=== PATIENT | female | born 1980 | race Caucasian/White ===

== ENCOUNTER 2018-04-03 13:45 | Emergency (ER) | payer OTHER ==
[~2018-04-03] VITALS: Ht 172.7 cm; Wt 81.4 kg
[~2018-04-03 13:45] MED LIST: ADVAIR 100/28 DISKUS IH; ADVAIR IH; ALBUTEROL0.09 MG/A1 IH; AMOXICILLIN 50500 MG PO; ASTHMA MED; BACTRIM DS 8001 TAB PO; CETIRIZINE; CIPRO; CLINDAMYCIN HC300 MG PO; COLACE 100100 MG/CAP PO; CYMBALTA 60MG60 MG PO; DILAUDID 2MG TAB2 MG PO; FLEXERIL10 MG PO; FLEXERIL5 MG PO; FLONASE NASAL S16 GM NS; HYDROMORPHONE HC2 MG PO; LEVAQUIN 5500 MG/TAB PO; LORTAB 5/500 501 TAB; LORTAB 5/500 501 TAB PO; MACROBID100 MG PO; MILK OF MA400 MG/51 PO; MOTRIN 800800 MG/TAB PO; NO HOME MEDICATIONS; NORCO PO; OXYCODONE HCL5 MG PO; PERCOCET 5/321 UDTAB PO; PHENERGAN 25 TA25 MG; PHENERGAN 25 TA25 MG PO; PRENATAL VITAMI1 TA5 PO; PYRIDIUM 100MG100 MG PO; VENTOLIN0.09 MG IH; VENTOLIN0.09 MG/AC IH; ZITHROMAX 250M250 MG PO; ZYRTEC 10MG PO
[2018-04-03 13:59] VITALS: BP 121/79; PULSE 71; TEMP 98
[2018-04-03 14:40] LABS: BASO # 0.1 (0.0-0.2); BASO % 1.1 % (0.0-2.0); EOS # 0.3 (0.0-0.7); EOS % 6.8 % (0-4.0); HEMATOCRIT 37.8 % (37.0-47.0); HEMOGLOBIN 12.3 g/dl (12.5-16.0); LYMPH # 1.7 (1.2-3.4); LYMPH % 36.9 % (20.0-51.0); MEAN CELL VOLUME 88 fl (80.0-100.0); MEAN CORPUSCULAR HEMOGLOBIN 29 pg (27.0-31.0); MEAN CORPUSCULAR HGB CONC 33 g/dl (33.0-37.0); MEAN PLATELET VOLUME 10.7 fl (7.4-10.4); MONO # 0.6 (0.1-0.6); PLATELET COUNT 170 K/mm3 (130-400); RED BLOOD COUNT 4.31 M/mm3 (4.10-5.30); REDCELL DISTRIBUTION WIDTH-CV 12.5 % (11.5-14.5)
[2018-04-03 14:50] LABS: ALBUMIN 4.1 gm/dL (3.5-5.0); BILIRUBIN,TOTAL 0.8 mg/dL (0.0-1.0); CALCIUM 8.7 mg/dL (8.4-10.2); CREATININE, serum 0.71 mg/dL (0.52-1.25); POTASSIUM 3.3 mmol/L (3.4-5.0); TOTAL PROTEIN 7.6 gm/dL (6.4-8.2)
== END 2018-04-03 14:50 | disposition home or self-care (01) ==
LOC: COL.ER 13:45
PROVIDERS: Physician Assistant
DX: M54.6 Pain in thoracic spine (principal)

== ENCOUNTER 2019-01-27 17:09 | Emergency (ER) | payer OTHER ==
[~2019-01-27] VITALS: Ht 175.3 cm; Wt 77.3 kg
[2019-01-27 17:24] VITALS: BP 115/73; TEMP 98.3
[2019-01-27] MEDS ORDERED: ZITHROMAX Z PA250 MG PO (18:27)
[2019-01-27] MEDS ORDERED: PREDNISONE20 MG PO (18:27)
[2019-01-27] MEDS ORDERED: PROAIR HFA0.09 MG/AC IH (18:27)
[2019-01-27 19:02] VITALS: PULSE 80
== END 2019-01-27 19:04 | disposition home or self-care (01) ==
LOC: COL.ER 17:09
DX: J45.909 Unspecified asthma, uncomplicated (principal); Z88.8 Allergy status to other drugs, medicaments and biological substances
CPT/HCPCS: J7512

== ENCOUNTER 2020-01-02 21:23 | Emergency (ER) | payer OTHER ==
[~2020-01-02] VITALS: Ht 175.3 cm; Wt 63.6 kg
[~2020-01-02 21:23] MED LIST changes: +PREDNISONE20 MG PO; +PROAIR HFA0.09 MG/AC IH; +ZITHROMAX Z PA250 MG PO
[2020-01-02 21:31] VITALS: BP 106/70; TEMP 98.1
[2020-01-02] MEDS ORDERED: DOXYCYCLINE 10100 MG PO (21:53)
[2020-01-02] MEDS ORDERED: PREDNISONE20 MG PO (21:53)
[2020-01-02 22:44] VITALS: PULSE 81
== END 2020-01-02 22:45 | disposition home or self-care (01) ==
LOC: COL.ER 21:23
DX: L03.115 Cellulitis of right lower limb (principal); L03.116 Cellulitis of left lower limb; L25.9 Unspecified contact dermatitis, unspecified cause; Z79.52 Long term (current) use of systemic steroids
CPT/HCPCS: J7512

== ENCOUNTER 2020-07-01 20:28 | Inpatient (IN) | payer MEDICAID ==
[2020-07-01] VITALS (8 sets, daily range): BP systolic 155–166; BP diastolic 83–99; PULSE 60–75
[~2020-07-01] VITALS: Ht 167.6 cm; Wt 81.8 kg
--- NOTE | 2020-07-01 20:20 | NUR ---
2020 - G3L2 at 38 weeks and 3 days gestation arrives to unit with complaint of contractions and spontaneous rupture of membranes. Pt appears to be very uncomfortable and is saying she feels like the baby is coming out. Pt is unsure what time her water may have broke and states maybe around 1600. Pt assisted to bed. SVE complete/+1 vertex position. US and toco applied. Nursery updated. Dr. Jara called for delivery. Pt states she has had previous vaginal deliveries but both have been early. Pt is hep C positive and had very limited care. 2030 - 18 G IV started in left forearm with 1 attempt. Admission labs obtained off IV start. Lactated Ringers infusing to gravity. Encouraged patient to continue breathing through contractions.
[~2020-07-01 20:28] MED LIST changes: +DOXYCYCLINE 10100 MG PO
--- NOTE | 2020-07-01 20:44 | NUR ---
2039 - Dr. Jara gown and gloved at perineum. Nursery nurse Sandrine Gaspar at bedside. Pt positioned into footplates and instructed to push with contractions. 2043 - Midline episiotomy cut by Dr. Jara. Spontaneouse vaginal delivery of viable infant girl. Infant placed on mothers abdomen and bulb suctioned by Dr. Jara . Cord clamped x [address] Jara, infant then to warmer to care of BILL Saucedo. Cord blood obtained. 2045 - Spontaneous delivery of intact placenta. Fundus down 2 from umbilicus, firm with massage. Pitocin started at 333mL/hr per protocol. Perineal laceration repaired by Dr. Jara. Cord gasses obtained. Verbal orders to send placenta to pathology. 2099 - Pericare provided. Straight cath for sample for UDS. Fundus boggy initially and several large clots and free flow noted. Updated Dr. Jara, verbal orders to give methergine and hemebate, see SEP. 2109 - Fundus firm and down 2 from umbilicus. New chux beneath patient. Ice pack to perineum. Pt positioned in bed for comfort. recovery started.
[2020-07-01 21:13] LABS: COLLECTION METHOD CATHETER
[2020-07-01 21:25] LABS: PH 8 (5-8); SQUAMOUS EPITHELIAL 0-2 /hpf; TRICYCLIC ANTIDEPRESS URINE NEGATIVE; URINE APPEARANCE Clear; URINE BACTERIA Rare /hpf; URINE BILIRUBIN Negative (NEGATIVE); URINE BLOOD 1+ (NEGATIVE); URINE COLOR Yellow; URINE GLUCOSE Negative (NEGATIVE); URINE KETONE 1+ (NEGATIVE); URINE LEUKOCYTE ESTERASE Trace (NEGATIVE); URINE NITRATE Negative (NEGATIVE); URINE PROTEIN(semi-quant) 1+ (NEGATIVE); URINE UROBILINOGEN >=4.0 mg/dL (NEGATIVE)
--- NOTE | 2020-07-01 21:30 | NUR ---
Consents reviewed and signed with patient. Pt falling asleep in the middle of signing but will then wake up and state she is in so much pain and then drift off again 1 minute later.
--- NOTE | 2020-07-01 21:45 | NUR ---
RN at bedside discussing positive urine drug screen with patient. After being told what she was positive for patient then states that shes takes suboxone and adderall. Pt states he dosage of suboxone is 8/2 but she hasn't taken it in a few days. Asked patient if she was using suboxone her entire and she states no. Asked patient what dosage of adderall she was prescribed and she was unable to give answer. This nurse reviewed her records at the bedside and told patient her only medication listed was vitamins, she then states "fine, I only take prenatals then"
[2020-07-01 21:46] LABS: BASO % 0.3 % (0.0-2.0); EOS # 0.2 (0.0-0.7); GRAN # 11.7 (1.4-6.5); GRAN % 81.3 % (42.2-75.2); HEMOGLOBIN 10.7 g/dl (12.5-16.0); LYMPH # 1.4 (1.2-3.4); LYMPH % 9.6 % (20.0-51.0); MEAN CELL VOLUME 78 fl (80.0-100.0); MEAN CORPUSCULAR HEMOGLOBIN 25 pg (27.0-31.0); MEAN CORPUSCULAR HGB CONC 32 g/dl (33.0-37.0); MEAN PLATELET VOLUME 11.8 fl (7.4-10.4); MONO % 7.2 % (1.7-9.3); PLATELET COUNT 191 K/mm3 (130-400); RED BLOOD COUNT 4.24 M/mm3 (4.10-5.30); REDCELL DISTRIBUTION WIDTH-CV 13.3 % (11.5-14.5)
[2020-07-01 22:00] LABS: ALBUMIN 3.2 gm/dL (3.5-5.0); BILIRUBIN,TOTAL 0.8 mg/dL (0.0-1.0); CALCIUM 8.6 mg/dL (8.4-10.2); CREATININE, serum 0.6 (0.52-1.25); POTASSIUM 3.5 mmol/L (3.4-5.0); TOTAL PROTEIN 6.8 gm/dL (6.4-8.2)
[2020-07-01 22:10] LABS: HEMATOCRIT 33.2 % (37.0-47.0)
[2020-07-01 22:28] LABS: HIV 1/2 Antibodies Non-Reactive; HIV-1p24 Antigen Non-Reactive
[2020-07-01] MEDS ORDERED: SUBOXONE 8 MG-21 TAB SL (22:41)
[2020-07-01] MEDS ORDERED: ADDERALL5 MG PO (22:41)
[2020-07-02 00:42] VITALS: BP 115/74; PULSE 69; TEMP 98.4
[2020-07-02 05:00] VITALS: BP 118/77; PULSE 71; TEMP 97.6
[2020-07-02 06:45] VITALS: BP 108/66; PULSE 74; TEMP 98
[2020-07-02] MEDS ORDERED: IBU800 M1 PO (09:28)
--- NOTE | 2020-07-02 12:46 | NUR ---
1100 anonymous person calls at this time stating " I know a patient that you are taking care of by the name of Romeo Haynes, and want you to know that she has been doing heroin and meth throughout the and is calling people to bring her drugs to the hospital now" no information given by this nurse but thanked person for information. 1230 at patients bedside, asking patient if she would fill out certificate for us. Patient states "i will get to it later, im on the phone". asks patient at this time what her plans on for wanting to be dismissed. Patient states" i wont leave until tomorrow, i am in alot of pain and want to rest, grand[facility] is [facility] anyways" Denies needs at this time. 1245 Patient at nurses station wanting to leave and get fresh air. informed by this nurse and A Hardacre that patients are not allowed to leave the floor due to covid percautions. Patient very agitated veerey quickly. Patient states "My anxiety is terrible and i have to leave. instructed that i can not let her leave due to policies. Patient states well then im gonn just leave for good then. Asks patient if she can give me 5 minutes to print discharge instructions and have her sign them. Pt states" No I'm Fucking leaving" and patient walks out the door and leaves. boardinghouse keeper, security and Dr Diaz all notified.
[2020-07-02 12:53] LABS: HEPATITIS B SURFACE ANTIGEN Negative (Negative)
[2020-07-02] MEDS ORDERED: METHERGINE0.2 MG/TAB PO (22:19)
--- NOTE | 2020-07-03 09:23 | NUR ---
CPS report made (#[id number]) SW contacted [facility] to follow baby. Baby was have siezures and given medications to stop. Mother has not made contact. Baby is reported to have Barbs in system from urine. SW shared drug screen, waiting on the cord. Made contact with [facility] . CPS report made on thier end also. Would like update on cord.
== END 2020-07-02 12:45 | disposition home or self-care (01) | DRG 806 ==
LOC: LDR 20:28 → OB 23:20
PROVIDERS: Obstetrics & Gynecology; ADMIT Obstetrics & Gynecology
PROC: 10E0XZZ Delivery of Products of Conception, External Approach (ICD-10-PCS; principal; 2020-07-01)
PROC: 0KQM0ZZ Repair Perineum Muscle, Open Approach (ICD-10-PCS; 2020-07-01)
DX: O77.0 Labor and delivery complicated by meconium in amniotic fluid (principal); O99.354 Diseases of the nervous system complicating childbirth; Z37.0 Single live birth; O98.42 Viral hepatitis complicating childbirth; O72.1 Other immediate postpartum hemorrhage; O99.324 Drug use complicating childbirth; O99.52 Diseases of the respiratory system complicating childbirth; J45.909 Unspecified asthma, uncomplicated; B18.2 Chronic viral hepatitis C; O70.1 Second degree perineal laceration during delivery; G71.00 Muscular dystrophy, unspecified; F15.90 Other stimulant use, unspecified, uncomplicated; Z3A.38 38 weeks gestation of pregnancy
CPT/HCPCS: J2210; J2590; J7120

== ENCOUNTER 2020-07-02 20:51 | Emergency (ER) | payer MEDICAID ==
[~2020-07-02] VITALS: Ht 175.3 cm; Wt 68.2 kg
[~2020-07-02 20:51] MED LIST changes: +ADDERALL5 MG PO; +IBU800 M1 PO; +SUBOXONE 8 MG-21 TAB SL
[2020-07-02 20:56] VITALS: TEMP 97.6
[2020-07-02 21:42] LABS: BASO % 0.2 % (0.0-2.0); EOS # 0.2 (0.0-0.7); GRAN # 11.8 (1.4-6.5); GRAN % 75.9 % (42.2-75.2); LYMPH # 2.2 (1.2-3.4); LYMPH % 14.3 % (20.0-51.0); MEAN CELL VOLUME 79 fl (80.0-100.0); MEAN CORPUSCULAR HGB CONC 32 g/dl (33.0-37.0); MEAN PLATELET VOLUME 11.8 fl (7.4-10.4); MONO # 1.3 (0.1-0.6); MONO % 8.1 % (1.7-9.3); PLATELET COUNT 183 K/mm3 (130-400); REDCELL DISTRIBUTION WIDTH-CV 13.8 % (11.5-14.5)
[2020-07-02 21:54] LABS: ALBUMIN 2.7 gm/dL (3.5-5.0); BILIRUBIN,TOTAL 0.6 mg/dL (0.0-1.0); CALCIUM 8.3 mg/dL (8.4-10.2); CREATININE, serum 0.65 (0.52-1.25); POTASSIUM 3.9 mmol/L (3.4-5.0)
[2020-07-02 21:57] LABS: HEMATOCRIT 27.6 % (37.0-47.0); HEMOGLOBIN 8.8 g/dl (12.5-16.0); MEAN CORPUSCULAR HEMOGLOBIN 25 pg (27.0-31.0)
[2020-07-02] MEDS ORDERED: METHERGINE0.2 MG/TAB PO (22:19)
[2020-07-02 22:53] VITALS: BP 111/76; PULSE 72
== END 2020-07-02 23:15 | disposition home or self-care (01) ==
LOC: COL.ER 20:51
PROVIDERS: Emergency Medicine
DX: N93.8 Other specified abnormal uterine and vaginal bleeding (principal); F17.210 Nicotine dependence, cigarettes, uncomplicated
CPT/HCPCS: J7030